=== PATIENT | female | born 1970 | race African-American/Black ===

== ENCOUNTER 2017-06-29 18:37 | Emergency (ER) | payer SELFPAY ==
[~2017-06-29] VITALS: Ht 154.9 cm; Wt 150.0 kg
[~2017-06-29 18:37] MED LIST: 00186-0372-20 IH; EPIPEN 2-PAK1 MG/ML IM; GLUCOPHAGE500 MG/TAB PO; HYGROTON 2525 MG/TAB; NEURONTIN300 MG/CAP PO; PERCOCET 325 MG1 TA2 PO; PRILOSEC 20MG20 MG PO; SINGULAIR 110 MG/TAB PO; VENTOLIN0.09 MG IH
[2017-06-29 18:39] VITALS: BP 172/94; PULSE 98; TEMP 97.9
[2017-06-29] MEDS ORDERED: COZAAR 25MG25 MG/TAB PO (19:26)
[2017-06-29] MEDS ORDERED: JANUVIA50 MG PO (19:27)
[2017-06-29] MEDS ORDERED: CEPHALEXIN500 M1 PO (19:46)
== END 2017-06-29 20:01 | disposition home or self-care (01) ==
LOC: COL.ER 18:37
DX: S91.332A Puncture wound without foreign body, left foot, initial encounter (principal); I10 Essential (primary) hypertension; E11.9 Type 2 diabetes mellitus without complications; J45.909 Unspecified asthma, uncomplicated; Z23 Encounter for immunization; Z79.84 Long term (current) use of oral hypoglycemic drugs; Z79.52 Long term (current) use of systemic steroids; W45.8XXA Other foreign body or object entering through skin, initial encounter; Y93.01 Activity, walking, marching and hiking; Y92.410 Unspecified street and highway as the place of occurrence of the external cause

== ENCOUNTER → 2017-11-22 | Outpatient (CLI) | payer OTHER ==
[~2017-11-22] MED LIST changes: +CEPHALEXIN500 M1 PO; +COZAAR 25MG25 MG/TAB PO; +JANUVIA50 MG PO
== END ==
LOC: COL.PUL 11:30
DX: Z02.71 Encounter for disability determination (principal); M77.32 Calcaneal spur, left foot; M19.072 Primary osteoarthritis, left ankle and foot; J45.909 Unspecified asthma, uncomplicated

== ENCOUNTER 2018-05-29 18:40 | Emergency (ER) | payer SELFPAY ==
[~2018-05-29] VITALS: Ht 154.9 cm; Wt 136.4 kg
[~2018-05-29 18:40] MED LIST changes: +NORCO 325 MG-51 TAB PO
[2018-05-29 18:44] VITALS: TEMP 98.3
[2018-05-29 19:26] LABS: BASO % 0.5 % (0.0-2.0); EOS # 0.2 (0.0-0.7); GRAN # 4.1 (1.4-6.5); HEMATOCRIT 42.6 % (37.0-47.0); HEMOGLOBIN 13.7 g/dl (12.5-16.0); LYMPH # 3.2 (1.2-3.4); MEAN CELL VOLUME 87 fl (80.0-100.0); MEAN CORPUSCULAR HEMOGLOBIN 28 pg (27.0-31.0); MEAN CORPUSCULAR HGB CONC 32 g/dl (33.0-37.0); MEAN PLATELET VOLUME 11.4 fl (7.4-10.4); MONO # 0.5 (0.1-0.6); MONO % 6.4 % (1.7-9.3); PLATELET COUNT 250 K/mm3 (130-400); RED BLOOD COUNT 4.88 M/mm3 (4.10-5.30); REDCELL DISTRIBUTION WIDTH-CV 12.7 % (11.5-14.5)
[2018-05-29 19:39] LABS: BILIRUBIN,TOTAL 0.4 mg/dL (0.0-1.0); C-REACTIVE PROTEIN 0.9 mg/dL (0.0-0.9); CALCIUM 9.9 mg/dL (8.4-10.2); CREATININE, serum 0.57 mg/dL (0.52-1.25); POTASSIUM 4.3 mmol/L (3.4-5.0); TOTAL PROTEIN 7.8 gm/dL (6.4-8.2)
[2018-05-29] MEDS ORDERED: ANTIVERT 25MG25 MG PO (21:41)
[2018-05-29 21:55] VITALS: BP 152/92; PULSE 70
== END 2018-05-29 21:58 | disposition home or self-care (01) ==
LOC: COL.ER 18:40
PROVIDERS: Emergency Medicine
DX: R42 Dizziness and giddiness (principal); E11.65 Type 2 diabetes mellitus with hyperglycemia; J45.909 Unspecified asthma, uncomplicated; E66.9 Obesity, unspecified; Z68.43 Body mass index [BMI] 50.0-59.9, adult; Z79.84 Long term (current) use of oral hypoglycemic drugs
CPT/HCPCS: J1815; J2060; J7030

== ENCOUNTER 2018-06-11 17:41 | Inpatient (IN) | payer SELFPAY ==
[~2018-06-11] VITALS: Ht 154.9 cm; Wt 337.0 kg
[~2018-06-11 17:41] MED LIST changes: +ANTIVERT 25MG25 MG PO
[2018-06-11] MEDS ORDERED: HYGROTON50 MG PO (17:55)
[2018-06-11] MEDS ORDERED: JANUVIA 100MG100 MG PO (17:56)
[2018-06-11] MEDS ORDERED: LEVEMIR FLEX100 U/ML SQ (17:57)
[2018-06-11] MEDS ORDERED: COZAAR 50MG50 MG/TAB PO (17:58)
[2018-06-11 18:09] LABS: BASO % 0.3 % (0.0-2.0); EOS # 0.1 (0.0-0.7); EOS % 1.9 % (0-4.0); GRAN # 3.5 (1.4-6.5); GRAN % 47.6 % (42.2-75.2); HEMATOCRIT 41.7 % (37.0-47.0); HEMOGLOBIN 13.4 g/dl (12.5-16.0); LYMPH # 3.2 (1.2-3.4); LYMPH % 43.7 % (20.0-51.0); MEAN CELL VOLUME 87 fl (80.0-100.0); MEAN CORPUSCULAR HEMOGLOBIN 28 pg (27.0-31.0); MEAN CORPUSCULAR HGB CONC 32 g/dl (33.0-37.0); MEAN PLATELET VOLUME 10.6 fl (7.4-10.4); MONO # 0.5 (0.1-0.6); MONO % 6.4 % (1.7-9.3); PLATELET COUNT 279 K/mm3 (130-400); RED BLOOD COUNT 4.82 M/mm3 (4.10-5.30); REDCELL DISTRIBUTION WIDTH-CV 12.9 % (11.5-14.5)
[2018-06-11 18:22] LABS: ALANINE AMINOTRANSFERASE 27 U/L (9-52); ALBUMIN 3.7 gm/dL (3.5-5.0); ALKALINE PHOSPHATASE 170 U/L (50-136); ANION GAP 7 mmol/L (7-16); AST,SGOT 17 U/L (15-37); BILIRUBIN,TOTAL 0.3 mg/dL (0.0-1.0); BLOOD UREA NITROGEN 8 mg/dL (7-17); CALCIUM 9.4 mg/dL (8.4-10.2); CARBON DIOXIDE 30 mmol/L (22-30); CHLORIDE 100 mmol/L (98-107); CREATINE KINASE 84 U/L (30-135); CREATININE, serum 0.68 mg/dL (0.52-1.25); GLUCOSE 354 mg/dL (74-106); LIPASE 106 U/L (23-300); POTASSIUM 3.9 mmol/L (3.4-5.0); SODIUM 137 mmol/L (137-145); TOTAL PROTEIN 7.4 gm/dL (6.4-8.2)
[2018-06-11 18:32] LABS: TROPONIN-I < 0.012 ng/mL (0.000-0.035)
--- NOTE | 2018-06-11 21:00 | NUR ---
Patient arrived to ICU accompanied by Kiana ED RN. Patient ambulated from ED bed to ICU bed, no issues to report. Patient reports CP 07/20. JUAN Boss outside of room, notified of arrival. Will assume care of patient at this time.
[2018-06-11 21:14] VITALS: BP 134/98; PULSE 71; TEMP 97.8
[2018-06-11 21:20] LABS: PROTHROMBIN TIME 11.9 SECONDS (9.7-12.8)
[2018-06-11 21:22] LABS: PARTIAL THROMBOPLASTIN TIME 32.5 SECONDS (26.0-37.0)
[2018-06-11] MEDS ORDERED: NEURONTIN300 MG/CAP PO (21:22)
[2018-06-11] MEDS ORDERED: ASPIRIN 81M81 MG/TA2 PO (21:30)
[2018-06-12] VITALS (12 sets, daily range): BP systolic 104–155; BP diastolic 55–98; PULSE 66–109; TEMP 97.8–98.2
--- NOTE | 2018-06-12 | NUR ---
Patient complains of no chest pain at this time. Patient resting in bed, will continue to monitor and assess.
[2018-06-12 04:53] LABS: BASO % 0.3 % (0.0-2.0); EOS # 0.1 (0.0-0.7); EOS % 2.2 % (0-4.0); GRAN # 2.9 (1.4-6.5); GRAN % 44.1 % (42.2-75.2); HEMATOCRIT 41.5 % (37.0-47.0); HEMOGLOBIN 13.3 g/dl (12.5-16.0); LYMPH % 46.1 % (20.0-51.0); MEAN CELL VOLUME 87 fl (80.0-100.0); MEAN CORPUSCULAR HEMOGLOBIN 28 pg (27.0-31.0); MEAN CORPUSCULAR HGB CONC 32 g/dl (33.0-37.0); MEAN PLATELET VOLUME 10.8 fl (7.4-10.4); MONO # 0.5 (0.1-0.6); MONO % 7.1 % (1.7-9.3); PLATELET COUNT 257 K/mm3 (130-400); RED BLOOD COUNT 4.78 M/mm3 (4.10-5.30); REDCELL DISTRIBUTION WIDTH-CV 13.1 % (11.5-14.5)
[2018-06-12 05:05] LABS: ANION GAP 6 mmol/L (7-16); BLOOD UREA NITROGEN 8 mg/dL (7-17); CALCIUM 9.1 mg/dL (8.4-10.2); CARBON DIOXIDE 29 mmol/L (22-30); CHLORIDE 102 mmol/L (98-107); CHOLESTEROL 188 mg/dL (120-200); CHOLESTEROL RISK RATIO 5.6; CREATININE, serum 0.52 mg/dL (0.52-1.25); GLUCOSE 253 mg/dL (74-106); HDL CHOLESTEROL 33 mg/dL; LDL CHOLESTEROL 128 mg/dL; POTASSIUM 3.8 mmol/L (3.4-5.0); SODIUM 137 mmol/L (137-145); TRIGLYCERIDE 133 mg/dL
[2018-06-12 05:20] LABS: TROPONIN-I < 0.012 ng/mL (0.000-0.035)
--- NOTE | 2018-06-12 07:15 | NUR ---
Report received from Wilbur MORAN and care transfered.
--- NOTE | 2018-06-12 08:30 | NUR ---
Dr Che in to see pt at this time.
--- NOTE | 2018-06-12 09:00 | NUR ---
Pt to faizan scan at this time.
--- NOTE | 2018-06-12 09:10 | NUR ---
Initial visit; Patient using telephone, didn't see the phone at first but wished Eden well. She thanked for stopping.
--- NOTE | 2018-06-12 11:15 | NUR ---
Pt returned from faizan scan and placed back on monitor. Pt to remain NPO until results read.
--- NOTE | 2018-06-12 11:45 | NUR ---
Dr Yao in to see pt at this time.
--- NOTE | 2018-06-12 12:23 | NUR ---
Dr Yao reports to pt that per Dr Che the pt will have a heart cath in AM. Pt may eat ADA diet in the mean time and will transfer to medical floor.
--- NOTE | 2018-06-12 13:13 | NUR ---
DAVID met with patient and . Patient lives independently at home with her . Patient reports she goes to the [facility] for primary care and she is on a program through [facility] to assist with prescripions. Patient does not use any home health or medical equipment. SW also provided a DPOA form to patient. SW will return once patient is ready to sign. No anticipated discharge needs at this time.
--- NOTE | 2018-06-12 16:57 | NUR ---
Report called to Hilario on medical and pt to transfer to room 310 on tele.
--- NOTE | 2018-06-12 17:21 | NUR ---
Pt taken by wheelchair to room 310 and update given to Hilario MORAN.
--- NOTE | 2018-06-12 18:19 | NUR ---
Since arriving to the floor the pt has been resting quietly. She has remained free of pain. Family members have remained at the bedside; all questions answered. Pt is sitting up in the bed eating her dinner at this time and she denies further needs. Call light within reach.
--- NOTE | 2018-06-12 18:49 | NUR ---
Report given to LUISA Velásquez.
[2018-06-13] VITALS (16 sets, daily range): BP systolic 106–160; BP diastolic 53–112; PULSE 71–95; TEMP 97.1–98.6
[2018-06-13 07:02] LABS: CALCIUM 9.2 mg/dL (8.4-10.2); CREATININE, serum 0.66 mg/dL (0.52-1.25); POTASSIUM 3.9 mmol/L (3.4-5.0)
--- NOTE | 2018-06-13 07:33 | NUR ---
PT HAD UNEVENTFUL NOC. NO C/O CHEST PAIN. APPEARED TO HAVE SLEPT WELL. FAMILY AT BEDSIDE UNTIL APPROX 0000. FSBS REMAINS HIGH, RECEIVEING S/S INSULIN PRE ORDERS. PT HAS BEEN NPO SINCE MIDNIGHT FOR UPCOMING PROCEDURE. NO ISSUES OR CONERNS VOICED.
--- NOTE | 2018-06-13 08:52 | NUR ---
Pt alert and oriented. Pt spoke with this am regarding cath procedure and consent was obtained. Pt rates pain 1/10 in augustus lower extremities d/t neuropathy pain. Pt has dry crusty feet. Pt IV's patent and no redness or infiltration noted. Pt denies SOB or chest pain at this time. Pt given half dose of Levemir d/t cath procedure today. Pt has call light in reach.
--- NOTE | 2018-06-13 09:59 | NUR ---
Initial visit; Patient thanked Sales Architect for offering prayer and God's blessings.
[2018-06-13] MEDS ORDERED: TOPROL XL 25MG25 MG PO (17:22)
[2018-06-13] MEDS ORDERED: NITRO-DUR0.2 MG/PAT TD (17:22)
--- NOTE | 2018-06-13 17:37 | NUR ---
pt sleeping soundly and arouses to voice and sternal stimulation. Pt BP high and Dr. Che updated and gave telephone order to give 20mg IV Lasix now one time. Pt resp 18 and unlabored and lung sounds clear. Pt has family at bedside and VS monitored. Pt right radial wrist slightly swollen but soft. Pt cuff intact and no bleeding noted.
--- NOTE | 2018-06-13 19:29 | NUR ---
Pt left to malthouse laborer around 1600 and returned at 1700. Pt has right radial band inflated 16cc air and no bleeding noted. Pt VS monitored and lasix helping with BP. Pt up to bathroom with 1 assist x2. Pt has call light in reach and bed alarm on for fall precaution. Family at bedside and instructed to call for help to get up for pt and pt aware. Pt alert and oriented. Family aware pt can discharge tonight after radial band taken off and pt ready. Pt ordered supper.
[2018-06-14] VITALS: BP 115/76; PULSE 78; TEMP 98.6
[2018-06-14 04:00] VITALS: BP 119/73; PULSE 76; TEMP 97.1
--- NOTE | 2018-06-14 05:06 | NUR ---
RT RADIAL BAND WAS REMOVED IN MIDDLE OF NIGHT. NO NOTED BLEEDING AT SITE. B/P WAS ELEVATED IN EVENING, WNL THROUGHOUT NOC. NO C/O CHEST PAIN OR RADIAL SITE PAIN. APPEARED TO HAVE RESTED WELL. WAS GROGGY THROUGHOUT SHIFT, ONLY WOKE UP FOR SMALL SPIRTS OF TIME.
[2018-06-14 08:14] VITALS: BP 119/61; PULSE 80; TEMP 97.7
--- NOTE | 2018-06-14 09:20 | NUR ---
pt is A+Ox3, pleasant, denies chest pain, SOB, dizziness. physical assessment completed. Heart regular S1S2. INT to LAC and INt to LH free of redness of swelling
--- NOTE | 2018-06-14 13:13 | NUR ---
This RN reviewed discharge instructions, answered all questions. Both INT's removed with tips intact, sites free of redness and swelling. personal belongings collected
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
[2018-06-14] MEDS ORDERED: LIPITOR20 MG PO (15:23)
== END 2018-06-14 13:45 | disposition home or self-care (01) | DRG 287 ==
LOC: COL.ER 17:41 → ICU 19:37 → COL.ER 19:37 → ICU 19:37 → MEDICAL 19:37 → ICU 06-12 13:14 → MEDICAL 06-12 13:14
PROVIDERS: Emergency Medicine; Nurse Practitioner Family; ADMIT Internal Medicine Cardiovascular Disease
PROC: B2111ZZ Fluoroscopy of Multiple Coronary Arteries using Low Osmolar Contrast (ICD-10-PCS; principal; 2018-06-13)
PROC: 4A023N7 Measurement of Cardiac Sampling and Pressure, Left Heart, Percutaneous Approach (ICD-10-PCS; 2018-06-13)
PROC: B2151ZZ Fluoroscopy of Left Heart using Low Osmolar Contrast (ICD-10-PCS; 2018-06-13)
DX: I25.110 Atherosclerotic heart disease of native coronary artery with unstable angina pectoris (principal); Z68.44 Body mass index [BMI] 60.0-69.9, adult; I10 Essential (primary) hypertension; E78.5 Hyperlipidemia, unspecified; E11.42 Type 2 diabetes mellitus with diabetic polyneuropathy; E11.65 Type 2 diabetes mellitus with hyperglycemia; Z79.4 Long term (current) use of insulin; J45.909 Unspecified asthma, uncomplicated; E66.9 Obesity, unspecified; K21.9 Gastro-esophageal reflux disease without esophagitis
CPT/HCPCS: 99223-AI; 99231-AI; 99232-AI; 99239; A9500; C1769; C1887; G0378; J1644; J1650; J1815; J1940; J2250; J2270; J2785; J3010; J7030; Q9967

== ENCOUNTER 2018-08-04 15:26 | Emergency (ER) | payer SELFPAY ==
[~2018-08-04] VITALS: Ht 154.9 cm; Wt 150.0 kg
[~2018-08-04 15:26] MED LIST changes: +ASPIRIN 81M81 MG/TA2 PO; +COZAAR 50MG50 MG/TAB PO; +HYGROTON50 MG PO; +JANUVIA 100MG100 MG PO; +LEVEMIR FLEX100 U/ML SQ; +LIPITOR20 MG PO; +NITRO-DUR0.2 MG/PAT TD; +TOPROL XL 25MG25 MG PO
[2018-08-04 15:30] VITALS: TEMP 98.5
[2018-08-04 16:12] LABS: BASO % 0.5 % (0.0-2.0); EOS # 0.1 (0.0-0.7); EOS % 1.8 % (0-4.0); GRAN # 4.2 (1.4-6.5); GRAN % 54.8 % (42.2-75.2); HEMATOCRIT 38.4 % (37.0-47.0); HEMOGLOBIN 12.2 g/dl (12.5-16.0); LYMPH # 2.8 (1.2-3.4); LYMPH % 36.7 % (20.0-51.0); MEAN CELL VOLUME 89 fl (80.0-100.0); MEAN CORPUSCULAR HEMOGLOBIN 28 pg (27.0-31.0); MEAN CORPUSCULAR HGB CONC 32 g/dl (33.0-37.0); MEAN PLATELET VOLUME 10.2 fl (7.4-10.4); MONO # 0.5 (0.1-0.6); MONO % 5.9 % (1.7-9.3); PLATELET COUNT 290 K/mm3 (130-400); RED BLOOD COUNT 4.33 M/mm3 (4.10-5.30)
[2018-08-04 16:29] LABS: ALANINE AMINOTRANSFERASE 11 U/L (9-52); ALBUMIN 3.8 gm/dL (3.5-5.0); ALKALINE PHOSPHATASE 156 U/L (50-136); ANION GAP 5 mmol/L (7-16); AST,SGOT 19 U/L (15-37); BILIRUBIN,TOTAL 0.2 mg/dL (0.0-1.0); BLOOD UREA NITROGEN 12 mg/dL (7-17); C-REACTIVE PROTEIN 1.4 mg/dL (0.0-0.9); CALCIUM 9.6 mg/dL (8.4-10.2); CARBON DIOXIDE 30 mmol/L (22-30); CHLORIDE 104 mmol/L (98-107); CREATININE, serum 0.75 mg/dL (0.52-1.25); GLUCOSE 142 mg/dL (74-106); LIPASE 93 U/L (23-300); POTASSIUM 3.8 mmol/L (3.4-5.0); SODIUM 139 mmol/L (137-145); TOTAL PROTEIN 7.6 gm/dL (6.4-8.2)
[2018-08-04 16:39] LABS: TROPONIN-I < 0.012 ng/mL (0.000-0.035)
[2018-08-04] MEDS ORDERED: NORCO 325 MG-51 TAB PO (17:43)
[2018-08-04 18:01] VITALS: BP 163/107; PULSE 75
== END 2018-08-04 18:18 | disposition home or self-care (01) ==
LOC: COL.ER 15:26
PROVIDERS: Emergency Medicine
DX: M54.12 Radiculopathy, cervical region (principal); R07.89 Other chest pain; I10 Essential (primary) hypertension; E11.9 Type 2 diabetes mellitus without complications; Z79.82 Long term (current) use of aspirin; Z79.4 Long term (current) use of insulin
CPT/HCPCS: J1170; J2405; J7030

== ENCOUNTER 2018-09-01 19:17 | Emergency (ER) | payer SELFPAY ==
[~2018-09-01] VITALS: Ht 154.9 cm; Wt 150.0 kg
[2018-09-01 19:59] LABS: COLLECTION METHOD CLEAN CATCH
[2018-09-01 20:30] LABS: MUCOUS Present /lpf; PH 5 (5-8); SQUAMOUS EPITHELIAL 20-50 /hpf; URINE APPEARANCE Cloudy; URINE BACTERIA Rare /hpf; URINE BILIRUBIN Negative (NEGATIVE); URINE BLOOD Negative (NEGATIVE); URINE COLOR Yellow; URINE GLUCOSE 3+ (NEGATIVE); URINE KETONE Negative (NEGATIVE); URINE LEUKOCYTE ESTERASE 3+ (NEGATIVE); URINE NITRATE Positive (NEGATIVE); URINE PROTEIN(semi-quant) 1+ (NEGATIVE); URINE RBC 20-50 /hpf; URINE UROBILINOGEN Negative (NEGATIVE)
[2018-09-01 21:45] LABS: COLLECTION METHOD CATHETER
[2018-09-01 21:57] LABS: MUCOUS Present /lpf; PH 5 (5-8); SQUAMOUS EPITHELIAL 0-2 /hpf; URINE APPEARANCE Cloudy; URINE BACTERIA Rare /hpf; URINE BILIRUBIN Negative (NEGATIVE); URINE BLOOD 2+ (NEGATIVE); URINE COLOR Yellow; URINE GLUCOSE 3+ (NEGATIVE); URINE KETONE Negative (NEGATIVE); URINE LEUKOCYTE ESTERASE 3+ (NEGATIVE); URINE NITRATE Positive (NEGATIVE); URINE PROTEIN(semi-quant) 1+ (NEGATIVE); URINE RBC >50 /hpf; URINE UROBILINOGEN Negative (NEGATIVE)
[2018-09-01] MEDS ORDERED: DIFLUCAN150 MG PO (22:16)
[2018-09-01] MEDS ORDERED: CEFTIN 250250 MG/TAB PO (22:16)
[2018-09-01 22:51] VITALS: BP 160/107; PULSE 75; TEMP 97.3
== END 2018-09-01 22:45 | disposition home or self-care (01) ==
LOC: COL.ER 19:17
PROVIDERS: Family Medicine; Nurse Practitioner
DX: B37.3 Candidiasis of vulva and vagina (principal); N39.0 Urinary tract infection, site not specified; I10 Essential (primary) hypertension; E11.40 Type 2 diabetes mellitus with diabetic neuropathy, unspecified; Z79.51 Long term (current) use of inhaled steroids; Z79.4 Long term (current) use of insulin; Z79.82 Long term (current) use of aspirin

== ENCOUNTER 2018-11-17 13:11 | Emergency (ER) | payer SELFPAY ==
[~2018-11-17] VITALS: Ht 154.9 cm; Wt 148.6 kg
[~2018-11-17 13:11] MED LIST changes: +CEFTIN 250250 MG/TAB PO; +DIFLUCAN150 MG PO
[2018-11-17 13:16] VITALS: TEMP 98.9
[2018-11-17] MEDS ORDERED: ZITHROMAX Z PA250 MG PO (13:32)
[2018-11-17 14:03] VITALS: BP 174/88; PULSE 91
== END 2018-11-17 14:07 | disposition home or self-care (01) ==
LOC: COL.ER 13:11
DX: J04.0 Acute laryngitis (principal); E11.9 Type 2 diabetes mellitus without complications; I10 Essential (primary) hypertension; E78.5 Hyperlipidemia, unspecified; E78.00 Pure hypercholesterolemia, unspecified; Z79.4 Long term (current) use of insulin; Z79.82 Long term (current) use of aspirin
CPT/HCPCS: J1100

== ENCOUNTER 2019-01-20 18:21 | Emergency (ER) | payer BC ==
[~2019-01-20] VITALS: Ht 154.9 cm; Wt 145.5 kg
[~2019-01-20 18:21] MED LIST changes: +ZITHROMAX Z PA250 MG PO
[2019-01-20 18:38] VITALS: TEMP 97.5
[2019-01-20 19:33] LABS: ALBUMIN 4.1 gm/dL (3.5-5.0); BILIRUBIN,TOTAL 0.4 mg/dL (0.0-1.0); CALCIUM 9.9 mg/dL (8.4-10.2); CREATININE, serum 0.57 (0.52-1.25); TOTAL PROTEIN 7.9 gm/dL (6.4-8.2)
[2019-01-20 20:53] LABS: ERYTHROCYTE SEDIMENTATION RATE 11 mm/hr (0-20)
[2019-01-20] MEDS ORDERED: COMPAZINE 110 MG/TAB PO (21:37)
[2019-01-20 21:45] VITALS: BP 165/95; PULSE 74
[2019-01-20 22:39] LABS: HEMATOCRIT 43.6 % (37.0-47.0); HEMOGLOBIN 14.4 g/dl (12.5-16.0); MEAN CELL VOLUME 84 fl (80.0-100.0); MEAN CORPUSCULAR HEMOGLOBIN 28 pg (27.0-31.0); MEAN CORPUSCULAR HGB CONC 33 g/dl (33.0-37.0)
[2019-01-20 22:40] LABS: MEAN PLATELET VOLUME 11.7 fl (7.4-10.4); PLATELET COUNT 264 K/mm3 (130-400); REDCELL DISTRIBUTION WIDTH-CV 13.5 % (11.5-14.5)
[2019-01-20 22:41] LABS: BASO % 0.3 % (0.0-2.0); EOS % 1.7 % (0-4.0); GRAN # 4.7 (1.4-6.5); GRAN % 53.6 % (42.2-75.2); LYMPH % 38.1 % (20.0-51.0); MONO % 5.7 % (1.7-9.3)
[2019-01-20 22:42] LABS: EOS # 0.2 (0.0-0.7); LYMPH # 3.3 (1.2-3.4); MONO # 0.5 (0.1-0.6)
== END 2019-01-20 21:45 | disposition home or self-care (01) ==
LOC: COL.ER 18:21
PROVIDERS: Emergency Medicine
DX: I10 Essential (primary) hypertension (principal); E11.65 Type 2 diabetes mellitus with hyperglycemia; E78.5 Hyperlipidemia, unspecified; G43.909 Migraine, unspecified, not intractable, without status migrainosus; E66.9 Obesity, unspecified; J45.909 Unspecified asthma, uncomplicated; Z95.9 Presence of cardiac and vascular implant and graft, unspecified; Z98.890 Other specified postprocedural states; Z79.51 Long term (current) use of inhaled steroids; Z79.4 Long term (current) use of insulin; Z79.82 Long term (current) use of aspirin
CPT/HCPCS: J0780; J1200; J1885; J7030

== ENCOUNTER 2020-03-08 13:26 | Inpatient (IN) | payer OTHER ==
[2020-03-08] VITALS (187 sets, daily range): BP systolic 168–192; BP diastolic 117–120; PULSE 77–87; TEMP 98.1; O2SAT 83–100
[~2020-03-08] VITALS: Ht 154.9 cm; Wt 137.4 kg
[~2020-03-08 13:26] MED LIST changes: +COMPAZINE 110 MG/TAB PO
[2020-03-08 14:04] LABS: BASO % 0.4 % (0.0-2.0); EOS # 0.1 (0.0-0.7); EOS % 1.7 % (0-4.0); GRAN # 4.1 (1.4-6.5); GRAN % 51.4 % (42.2-75.2); HEMATOCRIT 40.6 % (37.0-47.0); LYMPH # 3.2 (1.2-3.4); LYMPH % 41.2 % (20.0-51.0); MEAN CELL VOLUME 87 fl (80.0-100.0); MEAN CORPUSCULAR HEMOGLOBIN 28 pg (27.0-31.0); MEAN CORPUSCULAR HGB CONC 32 g/dl (33.0-37.0); MEAN PLATELET VOLUME 10.1 fl (7.4-10.4); MONO # 0.4 (0.1-0.6); MONO % 5.2 % (1.7-9.3); PLATELET COUNT 262 K/mm3 (130-400); RED BLOOD COUNT 4.69 M/mm3 (4.10-5.30); REDCELL DISTRIBUTION WIDTH-CV 12.9 % (11.5-14.5)
[2020-03-08 14:09] LABS: PROTHROMBIN TIME 11.5 SECONDS (9.7-12.8)
[2020-03-08 14:12] LABS: PARTIAL THROMBOPLASTIN TIME 32.2 SECONDS (26.0-37.0)
[2020-03-08 14:14] LABS: ALANINE AMINOTRANSFERASE 24 U/L (4-34); ALKALINE PHOSPHATASE 146 U/L (50-136); ANION GAP 5 mmol/L (7-16); AST,SGOT 21 U/L (15-37); BILIRUBIN,TOTAL 0.4 mg/dL (0.0-1.0); BLOOD UREA NITROGEN 11 mg/dL (7-17); CALCIUM 9.5 mg/dL (8.4-10.2); CARBON DIOXIDE 29 mmol/L (22-30); CHLORIDE 104 mmol/L (98-107); CREATININE, serum 0.63 (0.52-1.25); GLUCOSE 206 mg/dL (74-106); LIPASE 100 U/L (23-300); POTASSIUM 4.1 mmol/L (3.4-5.0); SODIUM 138 mmol/L (137-145); TOTAL PROTEIN 7.8 gm/dL (6.4-8.2)
[2020-03-08 14:28] LABS: TROPONIN-I < 0.012 ng/mL (0.000-0.035)
[2020-03-09] VITALS (713 sets, daily range): BP systolic 90–184; BP diastolic 50–124; PULSE 66–95; TEMP 97.8–98.4; O2SAT 69–100
[2020-03-09 05:41] LABS: CALCIUM 9.1 mg/dL (8.4-10.2); CREATININE, serum 0.67 (0.52-1.25); POTASSIUM 3.9 mmol/L (3.4-5.0)
[2020-03-09] MEDS ORDERED: NORVASC 10MG10 MG PO (06:18)
[2020-03-09] MEDS ORDERED: HCTZ 25MG TAB25 MG PO (06:21)
[2020-03-09] MEDS ORDERED: GLUCOPHAGE1000 MG PO (06:29)
[2020-03-09] MEDS ORDERED: PROTONIX20 MG PO (06:30)
--- NOTE | 2020-03-09 12:30 | NUR ---
Patients BP is doing much better. Nitro drip discontinued as ordered by Dr Burns. Dr Che here to see patient. Planning for stress test in am. Patient denies chest pain. Her home nitor patch has been started and she also got her home dose of Norvasc. Heparin drip and IVF's have also been discontinued. No other changes at this time. Call light within reach. She will be able to eat lunch and supper. NPO after midnight for stress test in am.
--- NOTE | 2020-03-09 13:24 | NUR ---
Patients blood pressure went back up to 178/124. 10mg hydralazine given as ordered. Dr Burns notified. Patient will not be going to floor this afternoon. No other changes at this time. Call annabel lofton. Will continue to monitor.
--- NOTE | 2020-03-09 14:28 | NUR ---
The patient is on contact isolation. Director Semiconductor met with the patient to complete initial intake the patient's (), Mario was present. The patient lives alone in [place]. She is currently from Mario. SW discussed advanced directives. The patient states she still would like Mario to make medical decisions, if needed. DAVID discussed completing DPOA-HC form. Form provided. The patient denies DME use and is independent with ADLs. The patient's PCP is IRENE Alberto at [facility] in . The patient receives medications from [facility] in . The patient is self-pay and may need a medication voucher at discharge. The patient plans to return home at discharge. The patient is self-pay. DAVID collaborated with Enma Anthony to have the releases signed by the patient. Medicaid and financial assistance applications were completed with the patient via telephone with Enma. DAVID provided the releases for the patient. After the patient signed the forms, DAVID scanned the releases to Enma. As mentioned above the patient may be needing a medication voucher at discharge and is agreeable to picking up medications at a [place] pharmacy that will take an [facility] voucher.
--- NOTE | 2020-03-09 14:39 | NUR ---
Patients BP is 183/115, notified Dr Burns. He ordered he to be started on a cardene IV drip. Charge Nurse will be resuming care of this patient. No other changes at this time. Call light within reach.
[2020-03-10] VITALS (327 sets, daily range): BP systolic 114–196; BP diastolic 59–97; PULSE 80–103; TEMP 97.8–98.1; O2SAT 56–100
[2020-03-10 05:22] LABS: HEMATOCRIT 41.3 % (37.0-47.0); HEMOGLOBIN 13.1 g/dl (12.5-16.0); MEAN CELL VOLUME 89 fl (80.0-100.0); MEAN CORPUSCULAR HEMOGLOBIN 28 pg (27.0-31.0); MEAN CORPUSCULAR HGB CONC 32 g/dl (33.0-37.0); MEAN PLATELET VOLUME 10.5 fl (7.4-10.4); PLATELET COUNT 241 K/mm3 (130-400); RED BLOOD COUNT 4.66 M/mm3 (4.10-5.30); REDCELL DISTRIBUTION WIDTH-CV 13.1 % (11.5-14.5)
--- NOTE | 2020-03-10 07:15 | NUR ---
To Radiology via wheel chair with tech for Naomie Scan. 0800 Returns to ICU 8 from Radiology via wheel chair. Denies needs, will monitor BP
--- NOTE | 2020-03-10 10:00 | NUR ---
Patient upset with MRSA diagnosis, states nobody was in last night and did a nasal swab, demands it be redone. Dr. Burns aware. 1045-Patient reswabbed at this time. Will await results. 1200 - MRSA nasal swab +. Patient continues to be upset, "What do I do about my family?!" Dr. Burns spoke with patient and education given by this nurse .
[2020-03-11 00:16] VITALS: BP 123/64; PULSE 87; TEMP 98.4
[2020-03-11 04:28] VITALS: BP 115/78; PULSE 77; TEMP 98.3
[2020-03-11 08:00] VITALS: BP 174/116; PULSE 95; TEMP 97.5
[2020-03-11] MEDS ORDERED: HCTZ 25MG TAB25 MG PO (10:53)
[2020-03-11] MEDS ORDERED: NORVASC 10MG10 MG PO (10:54)
[2020-03-11] MEDS ORDERED: COREG 6.256.25 MG/TA PO (10:54)
[2020-03-11] MEDS ORDERED: COZAAR100 MG PO (10:54)
[2020-03-11 12:00] VITALS: BP 137/85; PULSE 86
--- NOTE | 2020-03-11 13:00 | NUR ---
Discharge instructions and medication changes reviewed, states understanding. Denies questions or concerns at this time. Awaiting 's arrival for discharge
--- NOTE | 2020-03-11 13:30 | NUR ---
Discharged to home POV with driving.
== END 2020-03-11 13:30 | disposition home or self-care (01) | DRG 305 ==
LOC: COL.ER 13:26 → MEDICAL 15:39 → ICU 17:10 → MEDICAL 17:10 → ICU 19:26
PROVIDERS: Emergency Medicine; Physician Assistant; ADMIT Internal Medicine
DX: I16.0 Hypertensive urgency (principal); I25.110 Atherosclerotic heart disease of native coronary artery with unstable angina pectoris; Z68.43 Body mass index [BMI] 50.0-59.9, adult; E78.5 Hyperlipidemia, unspecified; K21.9 Gastro-esophageal reflux disease without esophagitis; I10 Essential (primary) hypertension; E11.40 Type 2 diabetes mellitus with diabetic neuropathy, unspecified; J45.909 Unspecified asthma, uncomplicated; E66.01 Morbid (severe) obesity due to excess calories; Z79.82 Long term (current) use of aspirin
CPT/HCPCS: 99223-AI; 99232-AI; 99233-AI; 99239; A9500; J0360; J1170; J1644; J1650; J1815; J2405; J2785; J7030; J7050

== ENCOUNTER 2020-05-17 08:44 | Emergency (ER) | payer SELFPAY ==
[~2020-05-17] VITALS: Ht 154.9 cm; Wt 133.2 kg
[~2020-05-17 08:44] MED LIST changes: +COREG 6.256.25 MG/TA PO; +COZAAR100 MG PO; +GLUCOPHAGE1000 MG PO; +HCTZ 25MG TAB25 MG PO; +NORVASC 10MG10 MG PO; +PROTONIX20 MG PO
[2020-05-17] MEDS ORDERED: TYLENOL 325MG325 MG PO (11:45)
[2020-05-17] MEDS ORDERED: MOTRIN 400400 MG/TAB PO (11:45)
[2020-05-17 12:01] VITALS: BP 181/110; PULSE 71; TEMP 97
== END 2020-05-17 12:01 | disposition home or self-care (01) ==
LOC: COL.ER 08:44
DX: M25.532 Pain in left wrist (principal); W01.0XXA Fall on same level from slipping, tripping and stumbling without subsequent striking against object, initial encounter; Y92.524 Gas station as the place of occurrence of the external cause

== ENCOUNTER 2020-06-13 08:06 | Emergency (ER) | payer SELFPAY ==
[~2020-06-13] VITALS: Ht 154.9 cm; Wt 127.3 kg
[~2020-06-13 08:06] MED LIST changes: +MOTRIN 400400 MG/TAB PO; +TYLENOL 325MG325 MG PO
[2020-06-13 08:10] VITALS: TEMP 97.2
[2020-06-13 10:00] VITALS: BP 176/105; PULSE 76
== END 2020-06-13 10:00 | disposition home or self-care (01) ==
LOC: COL.ER 08:06
DX: M25.571 Pain in right ankle and joints of right foot (principal); S91.332A Puncture wound without foreign body, left foot, initial encounter; G89.29 Other chronic pain; E11.9 Type 2 diabetes mellitus without complications; Z98.61 Coronary angioplasty status; Z91.040 Latex allergy status; Z79.4 Long term (current) use of insulin; Z79.51 Long term (current) use of inhaled steroids; Z79.82 Long term (current) use of aspirin; X50.1XXA Overexertion from prolonged static or awkward postures, initial encounter; Y99.0 Civilian activity done for income or pay

== ENCOUNTER 2020-08-08 23:59 | Emergency (ER) | payer SELFPAY ==
[~2020-08-08] VITALS: Ht 154.9 cm; Wt 130.5 kg
[2020-08-09 00:05] VITALS: TEMP 99.1
[2020-08-09] MEDS ORDERED: PERCOCET 325 MG1 TA2 PO (02:30)
[2020-08-09 03:31] VITALS: BP 168/102; PULSE 76
== END 2020-08-09 03:31 | disposition home or self-care (01) ==
LOC: COL.ER 23:59
DX: I10 Essential (primary) hypertension (principal); G62.9 Polyneuropathy, unspecified; J45.909 Unspecified asthma, uncomplicated; E11.40 Type 2 diabetes mellitus with diabetic neuropathy, unspecified; Z79.51 Long term (current) use of inhaled steroids; Z79.4 Long term (current) use of insulin; Z79.82 Long term (current) use of aspirin

== ENCOUNTER 2020-12-09 21:13 | Inpatient (IN) | payer SELFPAY ==
[~2020-12-09] VITALS: Ht 154.9 cm; Wt 128.2 kg
[2020-12-09 22:49] LABS: BASO % 0.4 % (0.0-2.0); GRAN # 1.4 (1.4-6.5); GRAN % 52.2 % (42.2-75.2); HEMATOCRIT 43.9 % (37.0-47.0); HEMOGLOBIN 14.1 g/dl (12.5-16.0); LYMPH % 37.2 % (20.0-51.0); MEAN CELL VOLUME 87 fl (80.0-100.0); MEAN CORPUSCULAR HEMOGLOBIN 28 pg (27.0-31.0); MEAN CORPUSCULAR HGB CONC 32 g/dl (33.0-37.0); MEAN PLATELET VOLUME 10.7 fl (7.4-10.4); MONO # 0.3 (0.1-0.6); MONO % 10.2 % (1.7-9.3); PLATELET COUNT 181 K/mm3 (130-400); RED BLOOD COUNT 5.03 M/mm3 (4.10-5.30)
[2020-12-09 23:07] LABS: ANION GAP 3 mmol/L (7-16); BLOOD UREA NITROGEN 7 mg/dL (7-17); CALCIUM 9.1 mg/dL (8.4-10.2); CARBON DIOXIDE 31 mmol/L (22-30); CHLORIDE 102 mmol/L (98-107); CREATININE, serum 0.64 (0.52-1.25); GLUCOSE 189 mg/dL (74-106); POTASSIUM 3.7 mmol/L (3.4-5.0); SODIUM 136 mmol/L (137-145)
[2020-12-09 23:21] LABS: TROPONIN-I < 0.012 ng/mL (0.000-0.035)
[2020-12-10 01:35] LABS: INR 1.2 (0.8-3.0); PROTHROMBIN TIME 13.8 SECONDS (9.7-12.8)
[2020-12-10 01:38] LABS: PARTIAL THROMBOPLASTIN TIME 28.8 SECONDS (26.0-37.0)
[2020-12-10 03:00] LABS: C-REACTIVE PROTEIN 0.7 mg/dL (0.0-0.9); CALCIUM 9.1 mg/dL (8.4-10.2); CREATININE, serum 0.62 (0.52-1.25); MAGNESIUM 1.9 mg/dL (1.6-2.3)
[2020-12-10 03:31] LABS: TROPONIN-I < 0.012 ng/mL (0.000-0.035)
[2020-12-10 05:25] VITALS: BP 170/111; PULSE 78; TEMP 99
--- NOTE | 2020-12-10 05:41 | NUR ---
ALERT AND OX4. HAS BEEN HAVING SOA, VEGA AND LACK OF APPETITE FOR ABOUT A WEEK NOW. NO ONE ELSE IN FAMILY IS SICK BUT GETTING TEST. DENIES ANY PAIN, SOA IS W AMBULATION. ASSESSMNT COMPLETE, POC DISCUSSED. FLUIDS RUNNING PER ORDER. VSS. NO FEVER. NO NAUSEA. CALL LIGHT WI REACH. LIGHTS DOWN FOR REST.
--- NOTE | 2020-12-10 07:00 | NUR ---
Report received from Yobani Holloway. PT in bed resting with eyes closed, will continue to monitor.
--- NOTE | 2020-12-10 08:00 | NUR ---
Assessment charted. Pt is very quiet, appears to be comfortable and work of breathing unlabored. 02 at 2LNC. Denies pain, nausea, or any active cough. Resting in bed, wants to order herself breakfast. IVF to RA/C. Will continue to monitor.
[2020-12-10 08:37] VITALS: BP 170/102; PULSE 75; TEMP 99.2
[2020-12-10 09:29] LABS: GRAN # 1.6 (1.4-6.5); GRAN % 62.5 % (42.2-75.2); HEMATOCRIT 44.2 % (37.0-47.0); HEMOGLOBIN 14.3 g/dl (12.5-16.0); LYMPH # 0.8 (1.2-3.4); LYMPH % 30.8 % (20.0-51.0); MEAN CELL VOLUME 87 fl (80.0-100.0); MEAN CORPUSCULAR HEMOGLOBIN 28 pg (27.0-31.0); MEAN CORPUSCULAR HGB CONC 32 g/dl (33.0-37.0); MEAN PLATELET VOLUME 10.8 fl (7.4-10.4); MONO # 0.2 (0.1-0.6); MONO % 6.3 % (1.7-9.3); PLATELET COUNT 197 K/mm3 (130-400); RED BLOOD COUNT 5.09 M/mm3 (4.10-5.30); REDCELL DISTRIBUTION WIDTH-CV 12.9 % (11.5-14.5)
[2020-12-10 11:56] VITALS: BP 169/102; PULSE 72; TEMP 98.8
[2020-12-10 13:49] VITALS: BP 153/98
--- NOTE | 2020-12-10 14:26 | NUR ---
Sw met with via phone. The pt stated her preference to return home to her , Mario (ph# [phone]) once medically stable. The is independent on all ADLs and does not use any DME. The pt PCP is Dr. Alexander and she gets her medications from [facility] in . The pt does not have a DPAO-HC and would like one made. No other needs stated at this time. Sw to follow D/C:Home/w
--- NOTE | 2020-12-10 15:14 | NUR ---
Update provided to "big Cristino" per request. Reviewed pt status, need,s and family will be bringing belongings per pt request. Will continue to monitor.
[2020-12-10 17:19] VITALS: BP 150/90; PULSE 74; TEMP 99.1
--- NOTE | 2020-12-10 18:21 | NUR ---
Pt doing well, resting in bed, states appetite is returning. Denies need,s will continue to monitor and give bedside shift report to nightshift nurse who will resume care.
[2020-12-10 20:25] VITALS: BP 128/81; PULSE 88; TEMP 98.9
[2020-12-11] VITALS (7 sets, daily range): BP systolic 119–161; BP diastolic 61–98; PULSE 64–87; TEMP 97.8–99.8
--- NOTE | 2020-12-11 06:20 | NUR ---
PATIENT HAD AN UNEVENTFULL NIGHT WITH 1L 02 NC. VSS. DENIES ANY DISCOMFORT. BLOOD SUGAR IN THE 200'S COVER PER SLIDING SCALE. WILL CONTINUE TO MONITOR.
--- NOTE | 2020-12-11 10:02 | NUR ---
PT PLEASANT, AOX4 DENIES SOB, N/V/D, AND PAIN. PT AOX4, ASSESSMENT PERFORMED, MEDICATIONS GIVEN, ICE WATER BROUGHT IN WITH BREAKFAST, EDUCATED ON MEDICATIONS GIVEN, NO OTHER NEEDS AT THIS TIME.
--- NOTE | 2020-12-11 18:09 | NUR ---
LAC INT REMOVED DUE TO INFILTRATION, NOTHING RUNNING AT TIME OF DISCOVERY. IV DOXY CHANGED TO PO, DR. FARR AWARE OF THERE NOT BEING IV ACCESS AT THIS TIME. BS HIGH DURING SHIFT, GIVING INSULIN PER SLIDING SCALE, ALL MEDICATIONS GIVEN, DENIES PAIN, BORDERLINE TEMP DURING SHIFT, NO OTHER NEEDS
--- NOTE | 2020-12-11 21:01 | NUR ---
PATIENT RESTING IN BED WITH INCREASES COUGH. LUNG SOUNDS DIMINISHED. NO RESPIRATORY DISTRESS NOTED. COUGH MEDICATION GIVEN. BLOOD SUGAR 287 LEVEMIR AND SLIDING SCALE GIVEN ORDERED. CALL LIGHT IN REACH. ADVICED TO CALL WITH ANY CONCERNED.
[2020-12-12 00:38] VITALS: BP 154/81; PULSE 86; TEMP 99.5
--- NOTE | 2020-12-12 03:25 | NUR ---
PATIENT RESTING IN BED. ON NO RESPIRATORY DISTRESS. IV INFILTRATED YESTERDAY . WAS AWARE. PATIENT IS A HARD STICK. PATIENT WAS ORDERED FOR ROCEPHEN IV. HOSPITOLIST KAYLA CHANGE TO PO ABX. WILL CONTINUE TO MONITOR.
[2020-12-12 04:00] VITALS: BP 138/74; PULSE 63; TEMP 98.6
[2020-12-12 05:47] LABS: HEMATOCRIT 39.6 % (37.0-47.0); HEMOGLOBIN 12.6 g/dl (12.5-16.0); MEAN CELL VOLUME 86 fl (80.0-100.0); MEAN CORPUSCULAR HEMOGLOBIN 28 pg (27.0-31.0); MEAN CORPUSCULAR HGB CONC 32 g/dl (33.0-37.0); MEAN PLATELET VOLUME 11.2 fl (7.4-10.4); PLATELET COUNT 160 K/mm3 (130-400); RED BLOOD COUNT 4.59 M/mm3 (4.10-5.30); REDCELL DISTRIBUTION WIDTH-CV 12.8 % (11.5-14.5)
[2020-12-12 06:00] LABS: CALCIUM 8.9 mg/dL (8.4-10.2); CREATININE, serum 0.58 (0.52-1.25); MAGNESIUM 1.6 mg/dL (1.6-2.3); POTASSIUM 3.9 mmol/L (3.4-5.0)
--- NOTE | 2020-12-12 06:46 | NUR ---
PT IN BED WITH OXYGEN IN
[2020-12-12 07:08] LABS: BAND 11 % (0-10); LYMPHOCYTE 44 % (20.0-51.0); METAMYELOCYTE 1 % (0-0); NEUTROPHILS 36 % (42.0-75.2); PLATELET ESTIMATE NORMAL (NORMAL)
--- NOTE | 2020-12-12 08:24 | NUR ---
PT WEARING GLASSES, DENIES PAIN, RECIEVED ROBATUSSIN ON ORGANISATION AND METHODS ANALYST EARLIER IN AM, VITALS TAKEN, MEDICATIONS GIVEN, ASSESSMENT PERFORMED, PT ON 1L NC, FRESH ICE WATER BROUGHT IN ALONG WTIH BREAKFAST, PT COUGHING WHILE IN ROOM, NONPRODUCTIVE. NO OTHER NEEDS AT THIS TIME
[2020-12-12 08:28] VITALS: BP 153/97; PULSE 83; TEMP 99.1
[2020-12-12] MEDS ORDERED: MONODOX100 PO (10:01)
[2020-12-12] MEDS ORDERED: RT Albuterol HFA MDI IH ×2 (10:01)
[2020-12-12] MEDS ORDERED: DECADRON6 MG PO (10:02)
[2020-12-12] MEDS ORDERED: PROAIR HFA0.09 MG/AC IH (10:02)
[2020-12-12] MEDS ORDERED: HCTZ 25MG TAB25 MG PO (10:07)
[2020-12-12] MEDS ORDERED: OXYGEN (10:08)
--- NOTE | 2020-12-12 10:32 | NUR ---
RT and the hospitalist notified DAVID that the patient qualified for 2 liters of oxygen with ambulation. SW contacted the patient's room phone to inform. The patient confirms that she is self pay. She is in agreement with getting her oxygen from [facility], which will assist her through the [facility]. The patient reports that her can sisal picker the oxygen after he is done with dialysis. DAVID contacted and faxed and emailed the oxygen order to Jose at [facility]. DAVID contacted and reviewed the above information with the patient's , Mario. Mario confirms that he will sisal picker the oxygen from [facility] before coming to sisal picker the patient. SW updated the patient's RN. No additional needs at this time.
[2020-12-12 11:41] VITALS: BP 141/73; PULSE 80; TEMP 99.7
--- NOTE | 2020-12-12 11:51 | NUR ---
WENT OVER DISCHARGE EDUCATION WITH PT, NO QUESTIONS AT THIS TIME. VITALS TAKEN, BS TAKEN, INSULIN GIVEN SINCE PT STATES SHE'LL BE EATING LUNCH HERE.
--- NOTE | 2020-12-12 14:17 | NUR ---
pt escorted out via wheelchair with pt belongings and pt paperwork.
== END 2020-12-12 14:17 | disposition home or self-care (01) | DRG 177 ==
LOC: COL.ER 21:13 → MEDICAL 12-10 00:54
PROVIDERS: Emergency Medicine; Internal Medicine; Nurse Practitioner Family; ADMIT Student in an Organized Health Care Education/Training Program
DX: U07.1 COVID-19 (principal); J96.01 Acute respiratory failure with hypoxia; J12.82 Pneumonia due to coronavirus disease 2019; Z68.43 Body mass index [BMI] 50.0-59.9, adult; I10 Essential (primary) hypertension; E78.5 Hyperlipidemia, unspecified; I25.10 Atherosclerotic heart disease of native coronary artery without angina pectoris; D72.819 Decreased white blood cell count, unspecified; Z20.822 Contact with and (suspected) exposure to COVID-19; E66.01 Morbid (severe) obesity due to excess calories; E11.9 Type 2 diabetes mellitus without complications; J45.909 Unspecified asthma, uncomplicated; Z95.818 Presence of other cardiac implants and grafts; Z79.84 Long term (current) use of oral hypoglycemic drugs; Z79.82 Long term (current) use of aspirin
CPT/HCPCS: 99223-AI; 99232-AI; 99239; J0696; J1100; J1650; J1815; J7030; J8540

== ENCOUNTER 2021-03-11 12:19 | Emergency (ER) | payer SELFPAY ==
[~2021-03-11] VITALS: Ht 154.9 cm; Wt 132.3 kg
[~2021-03-11 12:19] MED LIST changes: +DECADRON6 MG PO; +MONODOX100 PO; +OXYGEN; +PROAIR HFA0.09 MG/AC IH; +RT Albuterol HFA MDI IH
[2021-03-11] MEDS ORDERED: NORCO 325 MG-51 TAB PO (13:42)
[2021-03-11 13:57] VITALS: BP 158/74; PULSE 72; TEMP 97.9
== END 2021-03-11 14:01 | disposition home or self-care (01) ==
LOC: COL.ER 12:19
DX: M79.651 Pain in right thigh (principal); Z86.718 Personal history of other venous thrombosis and embolism; Z86.16 Personal history of COVID-19

== ENCOUNTER 2021-04-27 16:24 | Emergency (ER) | payer SELFPAY ==
[~2021-04-27] VITALS: Ht 154.9 cm; Wt 129.5 kg
[2021-04-27 16:40] VITALS: TEMP 98.4
[2021-04-27 19:21] VITALS: BP 144/80; PULSE 87
== END 2021-04-27 19:21 | disposition home or self-care (01) ==
LOC: COL.ER 16:24
DX: B34.9 Viral infection, unspecified (principal); E11.9 Type 2 diabetes mellitus without complications; I10 Essential (primary) hypertension; E78.5 Hyperlipidemia, unspecified; K21.9 Gastro-esophageal reflux disease without esophagitis; J45.909 Unspecified asthma, uncomplicated; Z20.822 Contact with and (suspected) exposure to COVID-19; Z79.899 Other long term (current) drug therapy; Z79.51 Long term (current) use of inhaled steroids; Z79.4 Long term (current) use of insulin; Z79.84 Long term (current) use of oral hypoglycemic drugs